=== PATIENT | female | born 1950 | race Caucasian/White ===

== ENCOUNTER 2016-07-26 19:26 | Emergency (ER) | payer OTHER, MEDICAID ==
[2016-07-26 19:32] VITALS: BP 142/72
== END 2016-07-26 20:43 | disposition home or self-care (01) ==
LOC: ED 19:26
DX: S29.012A Strain of muscle and tendon of back wall of thorax, initial encounter (principal); S80.01XA Contusion of right knee, initial encounter; I10 Essential (primary) hypertension; V43.52XA Car driver injured in collision with other type car in traffic accident, initial encounter; W22.11XA Striking against or struck by driver side automobile airbag, initial encounter; Y93.89 Activity, other specified; Y99.8 Other external cause status; Y92.89 Other specified places as the place of occurrence of the external cause

== ENCOUNTER 2019-05-02 06:31 | Emergency (ER) | payer OTHER ==
[~2019-05-02] VITALS: Ht 152.4 cm; Wt 58.5 kg
[2019-05-02 06:40] VITALS: Ht 152.4 cm; Wt 58.5 kg
[2019-05-02 07:44] LABS: RED CELL DISTRIBUTION WIDTH 13.3 % (11.5-14.5)
[2019-05-02 07:58] LABS: CALCIUM 8.5 mg/dL (8.5-10.1); CARBON DIOXIDE 25.5 mmol/L (21-32); CHLORIDE SERUM 102 mmol/L (98-107); CREATININE SERUM 0.7 mg/dL (0.6-1.0); GFR1 > 60 mL/min; GLUCOSE SERUM 163 mg/dL (74-106); POTASSIUM SERUM 4.2 mmol/L (3.5-5.1); SODIUM SERUM 132 mmol/L (136-145)
[2019-05-02 08:02] LABS: ALKALINE PHOSPHATASE 76 U/L (46-116); AST/SGOT 24 U/L (15-37); BILIRUBIN TOTAL 0.61 mg/dL (0.20-1.00); LIPASE 163 IU/L (73-393); TOTAL PROTEIN, SERUM 7.8 g/dL (6.4-8.2)
[2019-05-02 08:04] LABS: ALBUMIN 3.1 g/dL (3.4-5.0)
[2019-05-02 08:47] LABS: PLATELET COUNT 277 x10^3mcL (130-400)
[2019-05-02 08:48] LABS: ALT/SGPT 13 U/L (14-59)
[2019-05-02 08:50] LABS: BASOPHIL % 0 % (0-2)
[2019-05-02 09:46] VITALS: BP 135/87
== END 2019-05-02 09:46 | disposition home or self-care (01) ==
LOC: ED 06:31
PROVIDERS: Emergency Medicine
DX: K52.9 Noninfective gastroenteritis and colitis, unspecified (principal); I10 Essential (primary) hypertension
CPT/HCPCS: J2405

== ENCOUNTER 2019-05-19 21:07 | Observation (INO) | payer OTHER ==
[~2019-05-19] VITALS: Ht 152.4 cm; Wt 55.6 kg
[2019-05-19 21:14] VITALS: Ht 152.4 cm; Wt 55.6 kg
[2019-05-19 21:51] LABS: BASOPHIL % 0.4 % (0-2); PLATELET COUNT 444 x10^3mcL (130-400); RED CELL DISTRIBUTION WIDTH 13.7 % (11.5-14.5)
[2019-05-19 21:52] LABS: CALCIUM 8.6 mg/dL (8.5-10.1); CARBON DIOXIDE 21.5 mmol/L (21-32); CREATININE SERUM 1.8 mg/dL (0.6-1.0); POTASSIUM SERUM 5.3 mmol/L (3.5-5.1)
[2019-05-19 21:57] LABS: ALBUMIN 3.5 g/dL (3.4-5.0); BILIRUBIN TOTAL 0.2 mg/dL (0.20-1.00); MAGNESIUM 1.6 mg/dL (1.8-2.4); TOTAL PROTEIN, SERUM 8.3 g/dL (6.4-8.2)
[2019-05-20] MEDS ORDERED: ALD25 PO (03:00)
[2019-05-20] MEDS ORDERED: ZESTRIL5 MG PO (03:00)
[2019-05-20] MEDS ORDERED: COREG6.25 M1 PO (03:01)
[2019-05-20] MEDS ORDERED: ALENDRONATE SOD70 M3 PO (03:01)
[2019-05-20] MEDS ORDERED: ASPIRIN FOR CHI81 M1 PO (03:02)
[2019-05-20 06:43] LABS: BASOPHIL % 0.5 % (0-2); PLATELET COUNT 375 x10^3mcL (130-400); RED CELL DISTRIBUTION WIDTH 13.7 % (11.5-14.5)
[2019-05-20 07:14] LABS: CALCIUM 8.7 mg/dL (8.5-10.1); CARBON DIOXIDE 21.7 mmol/L (21-32); CREATININE SERUM 1.6 mg/dL (0.6-1.0); POTASSIUM SERUM 4.9 mmol/L (3.5-5.1)
[2019-05-20 09:11] VITALS: BP 132/59
[2019-05-20 12:05] VITALS: BP 139/64
[2019-05-20 15:52] VITALS: BP 123/65
[2019-05-20 20:09] VITALS: BP 119/51
[2019-05-20 21:27] LABS: UA SPECIFIC GRAVITY 1.015 (1.005-1.035); microscopic required? YES; urine erythrocyte TRACE (NEGATIVE)
[2019-05-21 04:45] VITALS: BP 126/56; BP 164/77
[2019-05-21 06:38] LABS: BASOPHIL % 0.4 % (0-2); PLATELET COUNT 322 x10^3mcL (130-400); RED CELL DISTRIBUTION WIDTH 13.3 % (11.5-14.5)
[2019-05-21 07:08] LABS: BILIRUBIN TOTAL 0.33 mg/dL (0.20-1.00); CALCIUM 8.1 mg/dL (8.5-10.1); CARBON DIOXIDE 23.3 mmol/L (21-32); CREATININE SERUM 1.3 mg/dL (0.6-1.0); MAGNESIUM 1.7 mg/dL (1.8-2.4); POTASSIUM SERUM 4.8 mmol/L (3.5-5.1)
[2019-05-21 07:11] LABS: ALBUMIN 2.9 g/dL (3.4-5.0)
[2019-05-21 07:37] VITALS: BP 143/61
[2019-05-21 10:53] VITALS: BP 127/53
[2019-05-21 11:47] VITALS: BP 127/53
== END 2019-05-21 13:45 | disposition home or self-care (01) ==
LOC: ED 21:07 → DU 23:07 → MU 05-20 07:48 → DU 05-20 18:32
PROVIDERS: Emergency Medicine; Internal Medicine; Internal Medicine Pulmonary Disease; ADMIT Internal Medicine Pulmonary Disease
DX: E87.5 Hyperkalemia (principal); N17.9 Acute kidney failure, unspecified; I12.9 Hypertensive chronic kidney disease with stage 1 through stage 4 chronic kidney disease, or unspecified chronic kidney disease; N18.3 Chronic kidney disease, stage 3 (moderate); K21.9 Gastro-esophageal reflux disease without esophagitis; E86.0 Dehydration
CPT/HCPCS: 83880; G0378; J0610; J1200; J2765; J3475; J3490; J7030